=== PATIENT | female | born 2000 | race African-American/Black ===

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

== ENCOUNTER 2021-05-02 21:09 | Emergency (ER) | payer MEDICAID ==
[~2021-05-02] VITALS: Ht 157.5 cm; Wt 68.9 kg
[2021-05-02 21:33] VITALS: BP 117/87
[2021-05-02] MEDS ORDERED: KETOROLAC TROMETH 60MG/2ML VIAL IM ONE (22:45)
== END 2021-05-03 00:46 | disposition home or self-care (01) ==
LOC: ER 21:12
DX: S13.4XXA Sprain of ligaments of cervical spine, initial encounter (principal); M54.2 Cervicalgia; F41.9 Anxiety disorder, unspecified; V49.49XA Driver injured in collision with other motor vehicles in traffic accident, initial encounter; Y93.89 Activity, other specified; Y92.488 Other paved roadways as the place of occurrence of the external cause; Y99.8 Other external cause status
CPT/HCPCS: 71045; 72040; 96372; 99284; J1885

== ENCOUNTER 2021-06-16 17:35 | Emergency (ER) | payer MEDICAID ==
[~2021-06-16] VITALS: Ht 157.5 cm; Wt 68.9 kg
[2021-06-16 17:53] VITALS: BP 103/70
[2021-06-16 19:58] LABS: Basophils # (auto) 0 10 ^3/uL (0-0.2); Basophils % (auto) 0.3 % (0.0-2.0); Eosinophils # (auto) 0 10 ^3/uL (0-0.8); Hematocrit 40.1 % (36.0-46.0); Lymphocytes # (auto) 0.5 10 ^3/uL (0.4-5.4); Lymphocytes % (auto) 4.7 % (10.0-50.0); Mean Corpuscular Hemoglobin 26.3 pg (28.0-32.0); Mean Corpuscular Hgb Conc. 32.5 g/dL (32.0-36.0); Mean Corpuscular Volume 80.7 fL (80.0-100.0); Monocytes # (auto) 0.3 10 ^3/uL (0-1.3); Monocytes % (auto) 3.1 % (0.0-12.0); Neutrophils # (auto) 9.2 10 ^3/uL (1.6-8.6); Neutrophils % (auto) 91.9 % (37.0-80.0); Red Blood Cells 4.96 10^6/uL (4.0-5.20)
[2021-06-16 19:59] LABS: Urine Bacteria NONE SEEN /hpf (None Seen); Urine Blood Negative /uL (Negative); Urine Specific Gravity 1.014 (1.001-1.035); Urine WBC <1 /hpf (0 - 5)
[2021-06-16 20:17] LABS: Albumin 3.7 g/dL (3.4-5.0); Calcium 8.7 mg/dL (8.5-10.1); Potassium 3.8 mmol/L (3.5-5.1)
[2021-06-16 20:27] LABS: BUN/Creatinine Ratio 13.1; Bilirubin, Total 0.4 mg/dL (0.2-1.0); Total Protein 7.8 g/dL (6.4-8.2)
== END 2021-06-16 23:50 | disposition left against medical advice (07) ==
LOC: ER 17:35
DX: R11.2 Nausea with vomiting, unspecified (principal); R30.0 Dysuria; Z53.21 Procedure and treatment not carried out due to patient leaving prior to being seen by health care provider
CPT/HCPCS: 36415; 80053; 81001; 85025

== ENCOUNTER 2021-10-15 01:51 | Emergency (ER) | payer MEDICAID ==
[~2021-10-15] VITALS: Ht 157.5 cm; Wt 70.3 kg
[2021-10-15 05:16] LABS: Urine Bacteria FEW /hpf (None Seen); Urine Blood Negative /uL (Negative); Urine Specific Gravity 1.011 (1.001-1.035); Urine WBC 12 /hpf (0 - 5)
[2021-10-15 09:45] VITALS: BP 112/75
[2021-10-15] MEDS ORDERED: NITR-87 PO (10:41)
== END 2021-10-15 10:50 | disposition home or self-care (01) ==
LOC: ER 01:51
DX: M79.10 Myalgia, unspecified site (principal); N39.0 Urinary tract infection, site not specified
CPT/HCPCS: 71250; 81001; 81025